=== PATIENT | female | born 1990 | race Caucasian/White ===

== ENCOUNTER 2016-11-16 17:28 | Emergency (ER) | payer SELFPAY ==
--- NOTE | 2016-11-16 20:19 | ER Document Report ---
ED General - General Chief Complaint: Rash Stated Complaint: SIDE PAIN Mode of Arrival: Ambulatory Information source: Patient Notes: Patient is a 26-year-old white female who presents with red burning rash to right flank that has been present since yesterday. She states 2-3 days ago she felt a "funny feeling" on her side prior to getting the rash. She denies any fever, chills, nausea, vomiting, drainage from rash. Denies any new soaps, detergents, lotions. She has not tried anything for this. TRAVEL OUTSIDE OF THE [place] IN LAST 30 DAYS: No - Related Data Allergies/Adverse Reactions: No Known Allergies Allergy (Verified 11/16/16 18:03) Past Medical History - General Information source: Patient - Social History Smoking Status: Never Smoker Chew tobacco use (# tins/day): No Frequency of alcohol use: None Drug Abuse: None Family History: Reviewed & Not Pertinent Patient has suicidal ideation: No Patient has homicidal ideation: No Pulmonary Medical History: Reports: Hx Asthma Past Surgical History: Reports: Hx Cholecystectomy - Immunizations Hx Diphtheria, Pertussis, Tetanus Vaccination: Yes Review of Systems - Review of Systems Constitutional: See HPI Skin: See HPI Physical Exam - Vital signs Vitals: Temp Pulse Resp BP Pulse Ox 97.8 F 85 18 140/86 H 100 11/16/16 18:00 11/16/16 18:00 11/16/16 18:00 11/16/16 18:00 11/16/16 18:00 - Notes Notes: PHYSICAL EXAM: CONSTITUTIONAL: Alert and oriented, well-appearing and in no acute distress. HENT: Normocephalic, atraumatic. Moist mucous membranes. EYES: Pupils equal round and reactive to light, EOM intact. Sclera anicteric, conjunctiva are normal. No entrapment. HEART: Regular rate and rhythm without murmurs. LUNGS: CTAB and equal. No wheezes, rales or rhonchi. EXTREMITIES: Normal range of motion, no pitting edema. No cyanosis. Cap Refill < 3 seconds. SKIN: Warm and dry. Normal turgor. erythematous vesicular rash in dermatomal distribution that does not cross the midline in right flank area. Course - Re-evaluation Re-evalutation: 11/16/16 20:32 Patient seen and examined. Rash consistent with herpes zoster. Discharge home in stable condition, will give scripts for gabapentin for pain. Follow-up with PMD. - Vital Signs Vital signs: Temp Pulse Resp BP Pulse Ox 97.8 F 85 18 140/86 H 100 11/16/16 18:00 11/16/16 18:00 11/16/16 18:00 11/16/16 18:00 11/16/16 18:00 Discharge - Discharge Clinical Impression: Shingles Qualifiers: Herpes zoster complications: without complications Qualified Code(s): B02.9 - Zoster without complications Condition: Stable Disposition: HOME, SELF-CARE Additional Instructions: Shingles You have shingles. Shingles is caused by the chicken pox virus, The virus has been surviving dormant in a nerve cell since you had chicken pox years ago. The virus has spread down a nerve root to reach the skin. Typically, an band-like area of pain and skin sensitivity develops, then small blisters erupt in the area. Shingles lasts two or three weeks, but sometimes leaves persistent pain. You are contagious -- you can give children chicken pox. But you can't give anyone shingles. Antiviral medicines (such as acyclovir or famciclovir) can help, but the rash usually worsens for about a week. Pain medication is often given if the area hurts. Antihistamines such as Benadryl may be necessary for itching if it does not respond to soda baths and calamine lotion. Sometimes cortisone medicine or nerve-block shots are necessary if pain is severe. If the area remains severely painful as the sores heal, or if you suspect an infection developing in the sores, see your doctor. Prescriptions: Acyclovir 800 mg PO 5XD #35 tablet Gabapentin 300 mg PO DAILY #10 capsule
[2016-11-16] MEDS ORDERED: ACYCLOVIR 800 MG TABLET PO ONE (20:45)
[2016-11-16] MEDS ORDERED: ACYCLOVIR 800 MG TABLET ONE (21:04)
[2016-11-16 21:49] VITALS: BP 131/79
== END 2016-11-16 20:50 | disposition home or self-care (01) ==
LOC: ER 17:28
DX: B02.9 Zoster without complications (principal); R21 Rash and other nonspecific skin eruption; R10.9 Unspecified abdominal pain
CPT/HCPCS: 99282; J3490

== ENCOUNTER 2017-04-01 19:13 | Emergency (ER) | payer MEDICAID ==
[2017-04-01 19:59] LABS: APPEARANCE,URINE CLOUDY; BILIRUBIN,URINE NEGATIVE (NEGATIVE); GLUCOSE, URINE NEGATIVE (NEGATIVE); KETONES,URINE TRACE mg/dL (NEGATIVE); LEUKOCYTE ESTERASE,URINE MODERATE (NEGATIVE); NITRITE,URINE NEGATIVE (NEGATIVE); PROTEIN,URINE 30 mg/dL (NEGATIVE); UROBILINOGEN,URINE NEGATIVE mg/dL (<2.0)
[2017-04-01 21:05] LABS: ABSOLUTE BASOPHILS # (AUTO) 0.1 10^3/uL (0.0-0.2); ABSOLUTE EOSINOPHILS # (AUTO) 0.1 10^3/uL (0.0-0.6); ABSOLUTE LYMPHOCYTES (AUTO) 2.3 10^3/uL (0.5-4.7); ABSOLUTE MONOCYTES (AUTO) 0.6 10^3/uL (0.1-1.4); EOSINOPHILS % (AUTO) 1.3 % (0-6); HEMATOCRIT 41.8 % (36.0-47.0); HEMOGLOBIN 14.5 g/dL (12.0-15.5); HGB HCT DIFFERENCE 1.7; LYMPHOCYTES % (AUTO) 22.9 % (13-45); MEAN CORPUSCULAR HEMOGLOBIN 28.4 pg (27.0-33.4); MEAN CORPUSCULAR HGB CONC 34.7 g/dL (32.0-36.0); MEAN CORPUSCULAR VOLUME 82 fl (80-97); MONOCYTES % (AUTO) 5.9 % (3-13); RED BLOOD COUNT 5.12 10^6/uL (3.72-5.28); RED CELL DISTRIBUTION WIDTH 12.8 % (11.5-14.0); SEGMENTED NEUTROPHILS % (AUTO) 68.9 % (42-78); WHITE BLOOD COUNT 10.2 10^3/uL (4.0-10.5)
--- NOTE | 2017-04-01 22:53 | ER Document Report ---
ED GI/ - General Mode of Arrival: Ambulatory Information source: Patient TRAVEL OUTSIDE OF THE [place] IN LAST 30 DAYS: No - HPI Patient complains to provider of: Abdominal pain Similar symptoms previously: No Recently seen / treated by doctor: No <FRANSISCO ALONSO - Last Filed: 04/02/17 00:55> <JODYFABIAN ARTURO - Last Filed: 04/02/17 03:34> - General Chief Complaint: Vaginal Bleeding Stated Complaint: VAGINAL BLEEDING Time Seen by Provider: 04/01/17 22:12 Notes: Patient is a 26-year-old female presents to the emergency department for some abnormal vaginal bleeding and dysuria. Patient states that she has been spotting and now she has had a bright heavy bleeding. Patient complains of some frequency and cramping. Patient states her whole cycle usually comes to the first of the month and therefore she is late now. Patient denies any fevers. Patient states that she was on control a few weeks ago but has since stopped. States that most control medications have not worked for her. Patient's [employer] is [employer]. (FRANSISCO ALONSO) - Related Data Allergies/Adverse Reactions: fexofenadine [From Jasmyne] Allergy (Verified 04/01/17 19:31) Past Medical History - General Information source: Patient Last Menstrual Period: 16 of February - Social History Smoking Status: Never Smoker Cigarette use (# per day): No Chew tobacco use (# tins/day): No Frequency of alcohol use: None Drug Abuse: None Family History: None Patient has suicidal ideation: No Patient has homicidal ideation: No Pulmonary Medical History: Reports: Hx Asthma Past Surgical History: Reports: Hx Cholecystectomy - Immunizations Hx Diphtheria, Pertussis, Tetanus Vaccination: Yes <FRANSISCO ALONSO - Last Filed: 04/02/17 00:55> Review of Systems - Review of Systems Constitutional: No symptoms reported EENT: No symptoms reported Cardiovascular: No symptoms reported Respiratory: No symptoms reported Gastrointestinal: See HPI, Abdominal pain Genitourinary: See HPI, Dysuria, Frequency Female Genitourinary: See HPI, Irregular period Musculoskeletal: No symptoms reported Skin: No symptoms reported Hematologic/Lymphatic: No symptoms reported Neurological/Psychological: No symptoms reported -: Yes All other systems reviewed and negative <FRANSISCO ALONSO - Last Filed: 04/02/17 00:55> Physical Exam - Vital signs Interpretation: Normal - General General appearance: Appears well, Alert - HEENT Head: Normocephalic, Atraumatic Eyes: Normal Pupils: PERRL Mucous membranes: Moist - Respiratory Respiratory status: No respiratory distress Chest status: Nontender Breath sounds: Normal Chest palpation: Normal - Cardiovascular Rhythm: Regular Heart sounds: Normal auscultation Murmur: No - Abdominal Inspection: Normal Distension: No distension Bowel sounds: Normal Tenderness: Nontender Organomegaly: No organomegaly - Back Back: Normal, Nontender - Extremities General upper extremity: Normal inspection, Normal ROM, Normal strength General lower extremity: Normal inspection, Normal ROM, Normal strength - Neurological Neuro grossly intact: Yes Cognition: Normal Orientation: AAOx4 Ladd Coma Scale Eye Opening: Spontaneous Sanjeev Coma Scale Verbal: Oriented Sanjeev Coma Scale Motor: Obeys Commands Sanjeev Coma Scale Total: 15 Speech: Normal Sensory: Normal - Psychological Associated symptoms: Normal affect, Normal mood - Skin Skin Temperature: Warm Skin Moisture: Dry <FRANSISCO ALONSO - Last Filed: 04/02/17 00:55> Course - Laboratory Result Diagrams: 04/01/17 20:50 <FRANSISCO ALONSO - Last Filed: 04/02/17 00:55> - Laboratory Result Diagrams: 04/01/17 20:50 <FABIAN VERA - Last Filed: 04/02/17 03:34> - Re-evaluation Re-evalutation: 04/01 Patient is a 26-year-old female who comes in complaining of vaginal bleeding and cramping. Patient initially denied any urinary symptoms but now states that she is having some frequency. Patient's main concern was that she was or not. The patient is not . Urine is concerning for UTI. Gonorrhea and Chlamydia are negative. Patient will be treated with Keflex and is to follow-up with her doctor. Stable for discharge. Agrees with plan. She is to follow-up with women's health regarding her vaginal bleeding. (FABIAN VERA) - Vital Signs Vital signs: Temp Pulse Resp BP Pulse Ox 98.1 F 74 18 140/79 H 99 04/01/17 23:32 04/01/17 23:32 04/01/17 23:32 04/01/17 23:32 04/01/17 23:32 - Laboratory Laboratory results interpreted by me: 04/01/17 19:35 Urine Protein 30 H Urine Ketones TRACE H Urine Blood LARGE H Ur Leukocyte Esterase MODERATE H Discharge <FRANSISCO ALONSO - Last Filed: 04/02/17 00:55> <FABIAN VERA - Last Filed: 04/02/17 03:34> - Discharge Clinical Impression: Vaginal bleeding UTI (urinary tract infection) Qualifiers: Urinary tract infection type: site unspecified Hematuria presence: with hematuria Qualified Code(s): N39.0 - Urinary tract infection, site not specified ; R31.9 - Hematuria, unspecified Condition: Stable Disposition: HOME, SELF-CARE Instructions: Urinary Tract Infection ([facility]), Vaginal Bleeding ([facility]) Prescriptions: Cephalexin Monohydrate [Keflex 500 mg Capsule] 500 mg PO QID #20 capsule Forms: Return to Work Referrals: LINDA BOLDEN PA-C [Primary Care Provider] - Follow up as needed Scribe Attestation: 04/02/17 03:34 I personally performed the services described in the documentation, reviewed and edited the documentation which was dictated to the scribe in my presence, and it accurately records my words and actions. (FABIAN VERA) Scribe Documentation - Scribe Written by Rupert:: Rupert Chiang, 04/02/17 1:00 acting as scribe for :: Jody <FRANSISCO ALONSO - Last Filed: 04/02/17 00:55>
[2017-04-01] MEDS ORDERED: CEPHALEXIN 500 MG CAPSULE PO ONE (23:21)
[2017-04-01] MEDS ORDERED: PHENAZOPYRIDINE HCL 200 MG TABLET PO ONE (23:26)
[2017-04-02 00:17] VITALS: BP 140/79
[2017-04-02 01:08] LABS: CHLAM PCR NOT DETECTED (NOT DETECT)
== END 2017-04-01 23:32 | disposition home or self-care (01) ==
LOC: ER 19:13
DX: N93.9 Abnormal uterine and vaginal bleeding, unspecified (principal); N39.0 Urinary tract infection, site not specified; R31.9 Hematuria, unspecified; N92.6 Irregular menstruation, unspecified; R10.9 Unspecified abdominal pain; J45.909 Unspecified asthma, uncomplicated; Z88.8 Allergy status to other drugs, medicaments and biological substances; Z90.49 Acquired absence of other specified parts of digestive tract
CPT/HCPCS: 36415; 81001; 84703; 85025; 86900; 86901; 87491; 87591; 99284

== ENCOUNTER 2018-01-13 17:39 | Emergency (ER) | payer MEDICAID ==
--- NOTE | 2018-01-13 18:01 | ER Document Report ---
ED General - General Chief Complaint: Thumb Injury Stated Complaint: FINGER INJURY Time Seen by Provider: 01/13/18 17:59 Mode of Arrival: Ambulatory Information source: Patient Notes: Patient is a 27-year-old healthy female who presents with left thumb pain that started around 1400 this afternoon after she slammed her thumb in a car door. She has tried to apply ice but states this made the pain worse. She is not taking any Tylenol or Motrin for the pain. She denies any numbness, tingling, swelling. Otherwise doing well. TRAVEL OUTSIDE OF THE [place] IN LAST 30 DAYS: No - Related Data Allergies/Adverse Reactions: fexofenadine [From Jasmyne] Allergy (Verified 01/13/18 17:44) Past Medical History - General Information source: Patient - Social History Smoking Status: Smoker,Current Status Unk Family History: None Pulmonary Medical History: Reports: Hx Asthma Renal/ Medical History: Denies: Hx Peritoneal Dialysis Past Surgical History: Reports: Hx Cholecystectomy - Immunizations Hx Diphtheria, Pertussis, Tetanus Vaccination: Yes Review of Systems - Review of Systems Constitutional: See HPI EENT: No symptoms reported Cardiovascular: No symptoms reported Respiratory: No symptoms reported Gastrointestinal: No symptoms reported Genitourinary: No symptoms reported Female Genitourinary: No symptoms reported Musculoskeletal: See HPI Skin: No symptoms reported Hematologic/Lymphatic: No symptoms reported Neurological/Psychological: No symptoms reported Physical Exam - Vital signs Vitals: Temp Pulse Resp BP Pulse Ox 98.1 F 67 14 135/97 H 98 01/13/18 17:50 01/13/18 17:50 01/13/18 17:50 01/13/18 17:50 01/13/18 17:50 - Notes Notes: PHYSICAL EXAM: CONSTITUTIONAL: Alert and oriented, well-appearing and in no acute distress. HENT: Normocephalic, atraumatic. Trachea midline. Uvula midline. Moist mucous membranes. EYES: Pupils equal round and reactive to light, EOM intact. Sclera anicteric, conjunctiva are normal. No entrapment. NECK: supple without lymphadenopathy. No midline tenderness or paraspinous muscle spasms. No step-offs or deformities. ROM intact. Negative Kergni's and negative Brudzinski's. HEART: Regular rate and rhythm without murmurs. LUNGS: CTAB and equal. No wheezes, rales or rhonchi. EXTREMITIES: Mild bony tenderness to left proximal and distal phalanges of thumb left hand without ecchymosis or deformity. Very small subungual hematoma to cuticle. Otherwise normal range of motion, no pitting edema. No cyanosis. Cap Refill <3 seconds. NEURO: Cranial nerves grossly intact. Normal sensory/motor exams. PSYCH: Normal mood, normal affect. SKIN: Warm and dry. Normal turgor. No rashes or lesions noted. Course - Re-evaluation Re-evalutation: 01/13/18 18:01 Patient seen and examined. Well-appearing, well-hydrated, in no acute distress. Speaking in full sentences without difficulty, sitting upright on exam bed playing on computer. Exam of left thumb is without deformity, very small less than 10% subungual hematoma noted to cuticle thumbnail. Will obtain x-rays. 01/13/18 19:22 Reviewed imaging and results, no fracture dislocation noted. Discussed results with patient. Will provide work note as requested. Advised to take Tylenol or ibuprofen as needed for pain. She can continue to ice as needed. Patient in agreement with plan. At this time, will discharge with return precautions and follow-up recommendations. Verbal discharge instructions given at the bedside and opportunity for questions given. Medication warnings reviewed. Patient is in agreement with this plan and has verbalized understanding of return precautions and the need for primary care follow-up in the next 24-72 hours. - Vital Signs Vital signs: Temp Pulse Resp BP Pulse Ox 98.1 F 67 14 135/97 H 98 01/13/18 17:50 01/13/18 17:50 01/13/18 17:50 01/13/18 17:50 01/13/18 17:50 - Diagnostic Test Radiology reviewed: Image reviewed, Reports reviewed Discharge - Discharge Clinical Impression: Contusion of left thumb with damage to nail, initial encounter Condition: Stable Disposition: HOME, SELF-CARE Additional Instructions: Your x-ray today was negative for any kind of broken bone or dislocation. We recommend that you continue to use Tylenol or ibuprofen every 4 hours as needed for pain. He can continue to apply ice to your thumb. It may take a few days for ear pain to subside. You will also notice that the discoloration on your thumb now will take some time to grow out. It normally takes a fingernail to grow 4-6 months did not be surprised if it takes as long for the discoloration to improve or go away. FOLLOW-UP CARE: If you have been referred to a physician for follow-up care, call the physician s office for an appointment as you were instructed or within the next two days. If you experience worsening or a significant change in your symptoms, notify the physician immediately or return to the Emergency Department at any time for re-evaluation. Forms: Elevated Blood Pressure, Return to Work Referrals: CHRISTY LAYTON MD [Primary Care Provider] - Follow up in 1 week
--- NOTE | 2018-01-13 18:28 | RADIOLOGY REPORT (SQ) ---
EXAM DESCRIPTION: HAND LEFT 3 VIEWS COMPLETED DATE/TIME: 01/13/2018 6:17 pm REASON FOR STUDY: slammed thumb in car door COMPARISON: None. EXAM PARAMETERS: NUMBER OF VIEWS: Three views. TECHNIQUE: AP, lateral and oblique radiographic images acquired of the left hand. LIMITATIONS: None. FINDINGS: MINERALIZATION: Normal. BONES: No acute fracture or dislocation. No worrisome bone lesions. JOINTS: No effusions. SOFT TISSUES: No soft tissue swelling. No foreign body. OTHER: No other significant finding. IMPRESSION: NEGATIVE STUDY OF THE LEFT HAND. NO RADIOGRAPHIC EVIDENCE OF ACUTE INJURY. TECHNICAL DOCUMENTATION: JOB ID: [id number] [employer]- All Rights Reserved Reading location - IP/workstation name: [email or web address]
[2018-01-13 19:44] VITALS: BP 144/90
== END 2018-01-13 19:33 | disposition home or self-care (01) ==
LOC: ER 17:39
DX: S60.112A Contusion of left thumb with damage to nail, initial encounter (principal); W23.0XXA Caught, crushed, jammed, or pinched between moving objects, initial encounter; J45.909 Unspecified asthma, uncomplicated; Z88.8 Allergy status to other drugs, medicaments and biological substances
CPT/HCPCS: 99283